=== PATIENT | male | born 1975 | race African-American/Black ===

== ENCOUNTER 2020-12-24 08:34 | Emergency (ER) | payer SELFPAY ==
[~2020-12-24] VITALS: Ht 190.5 cm; Wt 90.0 kg
[2020-12-24] MEDS ORDERED: MORPHINE SULFATE 4 MG/ML CPJ (NOT FOR IM USE) IV STA (09:05)
[2020-12-24] MEDS ORDERED: ONDANSETRON HCL 4MG/2ML INJ IV STA (09:05)
[2020-12-24] MEDS ORDERED: SODIUM CHLORIDE 0.9% 1,000 ML IV ONE (09:15)
[2020-12-24 09:36] LABS: BASOPHILS % 0.2 % (0.0-2.0); EOSINOPHILS % 0.1 % (0.0-5.0); HEMATOCRIT. 52.6 % (42.0-52.0); LYMPHOCYTES % 11.8 % (20.0-50.0); MEAN CORPUSCULAR HEMOGLOBIN 28.1 pg (28.0-32.0); MEAN CORPUSCULAR VOLUME 86.8 fL (80.0-94.0); MEAN PLATELET VOLUME 7.7 fl (7.4-10.4); NEUTROPHILS % 81.9 % (40.0-76.0); PLATELET 269 x1000/uL (130-400); RED BLOOD CELL COUNT 6.06 mill/uL (4.7-6.1); RED CELL DISTRIBUTION WIDTH 13.4 % (11.6-14.6)
[2020-12-24 09:37] LABS: CHLORIDE 97 mEq/L (98-107)
[2020-12-24 09:41] LABS: INR 1.1; PROTHROMBIN TIME 11.4 sec (9.6-11.0)
[2020-12-24] MEDS ORDERED: VISCOUS LIDOCAINE 2% 15 ML UDC MM PRN (14:00)
[2020-12-24] MEDS ORDERED: MORPHINE SULFATE 2 MG/ML CPJ (NOT FOR IM USE) IV PRN (17:00)
[2020-12-24] MEDS ORDERED: LORAZEPAM 2MG/ML CPJ IV PRN (17:00)
[2020-12-24] MEDS ORDERED: ACETAMINOPHEN 650MG SUPP PR PRN ×2 (17:00)
[2020-12-24] MEDS: DEXT 5%/LACTATED RINGERS 1,000 ML IV SCH (17:18)
[2020-12-24 17:42] LABS: C REACTIVE PROTEIN QUANT 7.2 mg/L (0.0-3.0)
[2020-12-24] MEDS: ONDANSETRON HCL 4MG/2ML INJ IV PRN (17:56)
[2020-12-25] MEDS: ONDANSETRON HCL 4MG/2ML INJ IV PRN (00:31)
[2020-12-25] MEDS: DEXT 5%/LACTATED RINGERS 1,000 ML IV SCH (05:05)
[2020-12-25 06:34] LABS: CHLORIDE 101 mEq/L (98-107)
[2020-12-25] MEDS ORDERED: BACITRACIN 50,000 UNITS/VIAL ONE (07:06)
[2020-12-25] MEDS ORDERED: BUPIVACAINE HCL 0.5% (5MG/ML) 50ML ONE (07:06)
[2020-12-25] MEDS ORDERED: SKIN ADHESIVE 0.7 GM EA TOP ONE (07:06)
[2020-12-25 07:20] LABS: HEMATOCRIT. 53.3 % (42.0-52.0); HEMOGLOBIN. 17.1 g/dL (14.0-18.0); LYMPHOCYTES % 9.8 % (20.0-50.0); MEAN CORPUSCULAR HEMOGLOBIN 28.2 pg (28.0-32.0); MEAN CORPUSCULAR VOLUME 87.9 fL (80.0-94.0); MONOCYTES % 9.3 % (2.0-8.0); NEUTROPHILS % 80.9 % (40.0-76.0); PLATELET 265 x1000/uL (130-400); RED BLOOD CELL COUNT 6.06 mill/uL (4.7-6.1); RED CELL DISTRIBUTION WIDTH 13.5 % (11.6-14.6)
[2020-12-25] MEDS ORDERED: DEXT 5%/0.45% NACL KCL 20MEQ/L 1,000 ML IV SCH (08:00)
[2020-12-25 08:30] VITALS: BP 147/105
[2020-12-25] MEDS ORDERED: SODIUM CHLORIDE 0.9% INJ 3ML FLUSH IVF SCH (14:00)
== END 2020-12-25 11:18 | disposition home or self-care (01) ==
LOC: ER 08:52 → CANBEDREQ 12-26 08:57
DX: K56.609 Unspecified intestinal obstruction, unspecified as to partial versus complete obstruction (principal); F17.290 Nicotine dependence, other tobacco product, uncomplicated; Z20.822 Contact with and (suspected) exposure to COVID-19
CPT/HCPCS: 36415; 71045; 74176; 80048; 80053; 82728; 83615; 83690; 83880; 85025; 85379; 85610; 86140; 87426; 93005; 96361; 96374; 96375; 96376; 99285; 99406; J2060; J2270; J2405; J3490; J7030; Z7610